=== PATIENT | male | born 1995 | race African-American/Black ===

== ENCOUNTER 2025-04-18 01:28 | Emergency (ER) | payer OTHER, SELFPAY ==
[2025-04-18 01:34] VITALS: BP 133/82; PULSE 82; RESP 18; TEMP 36.6; O2SAT 82; BMI 23.7
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
--- OUTSIDE RECORDS SUMMARY | 2025-04-18 04:17 | XMS_ITS | Encounter Summary ---
Author Organization [facility] iance Address [address] [place] [address] Care Team Providers Care Field Hockey Coach Name Role Phone Dayanna Vallejo MD Primary Care Provider [phone] Reason for Visit * Reason Onset Date Comments Imm/Inj 10/01/2024 heplisav Encounter Details Date Type Department Care Team ([facility] st Contact Info) Description 10/01/[address], [address] [place] [address] Dayanna Vallejo MD [address] [place] [id number] Imm/Inj (heplisav) Social History Tobacco Use Types Packs/Day Years Used Date Smoking Tobacco: Never Smokeless Tobacco: Never Alcohol Use Standard Drinks/Week Comments Yes 0 (1 standard drink = 0.6 oz pure alcohol) once a month, every other month Sex and Gender Information Value Date Recorded Sex Assigned at Not on file Legal Sex Male 10:41 PM EDT Gender Identity Male 09/01/2023 2:57 PM EST Sexual Orientation Straight 09/01/2023 2: 57 PM EST documented as of this encounter Miscellaneous Notes * Telephone Encounter - Stephanie Quinteros - 10/01/2024 4:33 PM EDT NURSE called [facility]ill Department to complete a benefit analysis for the HEPLISAV-B Vaccine. The vaccine is covered under the patient???s medical medical coverage. Please choose Private Thank you documented in this encounter Plan of Treatment Not on file documented as of this encounter Visit Diagnoses Not on filedocumented in this encounter Care Teams Field Hockey Coach Relationship Specialty Start Date End Date Dayanna Vallejo MD [address] [place] [address], [place] [address] PCP - General 06/08/24 documented as of this encounter
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
--- OUTSIDE RECORDS SUMMARY | 2025-04-18 04:17 | XMS_ITS | Encounter Summary ---
Author Organization [facility] iahie Address [address] [place] [address] Care Team Providers Care Practice Director Name Role Phone Dayanna Vallejo MD Primary Care Provider [phone] Reason for Visit * Reason Onset Date Comments Imm/Inj 10/29/2024 heplisav Encounter Details Date Type Department Care Team ([facility] st Contact Info) Description 10/29/[address], [address] [place] [address] Dayanna Vallejo MD [address] [place] [id number] Imm/Inj (heplisav) Social History Tobacco Use Types [...] encounter Miscellaneous Notes * Telephone Encounter - Dory Brunson - 10/29/2024 9:14 AM EDT Nurse from [facility] called the Central Refill Department to complete a benefit analysis for the heplisav Vaccine. The vaccine is covered under the patient???s [facility] medical coverage. Please choose Private documented in this encounter Plan of Treatment Not on file documented as of this encounter Visit Diagnoses Not on filedocumented in this encounter Care Teams Practice Director Relationship Specialty Start Date End Date Dayanna Vallejo MD [address] [place] [address], [place] [address] PCP - General 06/08/24 documented as of this encounter
--- OUTSIDE RECORDS SUMMARY | 2025-04-18 04:17 | XMS_ITS | Encounter Summary ---
Author Organization [facility] iacte Address [address] [place] [address] Care Team Providers Care Public Address Servicer Name Role Phone Organization, Other Palliative Care Primary Care Provider Unavailable Valentin Walter MD Primary Care Provider [phone] Talita Montalvo MD Primary Care Provider [phone] Shiva Grover DO Primary Care Provider + Dayanna Vallejo MD Primary Care Provider [phone] Reason for Visit * Reason Onset Date Comments Imm/Inj 02/09/2019 tdap Encounter Details Date Type Department Care Team (Late st Contact Info) Description 02/09/[address], [address] [place] [address] Valentin Walter MD [address] [place] [address] Imm/Inj (tdap) Social History Tobacco Use Types Packs/Day Years Used Date Smoking Tobacco: Never Alcohol Use Standard Drinks/Week Comments No 0 (1 standard drink = 0.6 oz pur e alcohol) Sex and Gender Information Value Date Recorded Sex Assigned at Not on file Legal Sex Male 10:41 PM EDT Gender Identity Male 09/01/2023 2:57 PM EST Sexual Orientation Straight 09/01/2023 2: 57 PM EST documented as of this encounter Miscellaneous Notes * Telephone Encounter - Juan A Tijerina Zunilda - 02/09/2019 11:00 AM EDT ----- Message from Daisy Navarro LPN sent at 02/08/2019 9:22 AM EDT ----- Regarding: benefit review Vaccine Benefit Analysis: Needed for Tdap vaccine(s). Is patient currently waiting in clinic? No - Appt Date: 02/10 Route to the nursing pool? No documented in this encounter Plan of Treatment Not on file documented as of this encounter Visit Diagnoses Not on filedocumented in this encounter Care Teams Public Address Servicer Relationship Specialty Start Date End Date Organization, Other Palliative Care PCP - General Palliative Care 02/08/19 02/09/19 Valentin Walter MD [address] [place] [address] PCP - General Family Medicine 02/10/19 01/30/21 Talita Montalvo MD [address] [place] [address] PCP - General 01/31/21 03/25/22 Shiva Grover DO [address] [place] [address] PCP - General Family Medicine 03/26/22 06/07/24 Dayanna Vallejo MD [address] [place] [address] PCP - General 06/08/24 documented as of this encounter
--- OUTSIDE RECORDS SUMMARY | 2025-04-18 04:17 | XMS_ITS | Encounter Summary ---
Author Organization [facility] iadee Address [address] [place] [address] Care Team Providers Care Care Coordinator Name Role Phone Shiva Grover DO Primary Care Provider + Dayanna Vallejo MD Primary Care Provider [phone] Reason for Visit * Reason Onset Date Comments Cough 08/19/2023 Encounter Details Date Type Department Care Team (Late st Contact Info) Description 08/26/2023 Nurse Triage [address], [address] [place] [address] Shiva Grover DO [address] [place] [address] Cough Social History Tobacco Use Types Packs/Day Years [...] encounter Miscellaneous Notes * Telephone Encounter - Vale Morgan RN - 08/27/2023 10:26 AM EST Spoke w/pt and confirmed identity with 2 patient identifiers. Pt speaking in full sentences, but can hear audible coughing Cough x1 week,throat soreness, extreme discomfort with coughs and without coughs, runny nose Chest discomfort is 6/10 and with coughs pain is 10/10 No fever + yellow phlegm, no blood General SOB, history of asthma and says he uses inhaler as needed, and it helps slightly. COVID tested neg 08/19/23 Coughing gets so bad he starts to gag and throws up the phlegm Pt went to [facility] 08/19/23 and they did not prescribe any treatment for pt They listened to lungs but did not hear fluid in lungs Pt says it has gotten worse since then Pt told to f/u for worsening or new symptoms. Pt told he has URI. 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 Pt shares a car with child's mother Pt currently resides in [place] and has had difficulty finding a provider in [place]. Pt has little trust in health care systems where he is. Informed pt that due to his history and that he is feeling worse would be best to have him re-evaluated preferably somewhere [facility] chest x-ray. Concerned for PNA or bronchitis. Pt says he will tough it out and is requesting nurse send msg to PCP. Pt is at work, nurse ended call and will forward to PCP. Preferred pharmacy: [id number] - [address] [[id number]] Advised per nursing triage protocol. Verbalized understanding and agreement with instructions and disposition. Recommended disposition for patient:Disposition: Advised to go to Urgent Care for Evaluation If patient referred to UC/ED advised that they may require further follow up and testing after the visit with their primary care office. Instructed patient to call back for any new, worsening, or worrisome symptoms or concerns any time day or night. Reason for Disposition MILD difficulty breathing (e.g., minimal/no SOB at rest, SOB with walking, pulse <100) and stillpresent when not coughing Protocols used: Cough-A-OH documented in this encounter Plan of Treatment Not on file documented as of this encounter Visit Diagnoses Not on filedocumented in this encounter Care Teams Care Coordinator Relationship Specialty Start Date End Date Shiva Grover DO [address] [place] [id number] PCP - General Family Medicine 03/26/22 06/07/24 Dayanna Vallejo MD [address] [place] [phone] PCP - General 06/08/24 documented as of this encounter
--- OUTSIDE RECORDS SUMMARY | 2025-04-18 04:17 | XMS_ITS | Encounter Summary ---
Author Organization [facility] [facility] iance Address [address] [place] [address] Care Team Providers Care Cam Milling Machine Operator Name Role Phone Dayanna Vallejo MD Primary Care Provider [phone] Encounter Details Date Type Department Care Team ([facility] st Contact Info) Description 02/14/2025 Results Follow-Up [facility] [address] [place] [address], [address] [place] [address] Dayanna Vallejo MD [address] [place] [phone] Social History Tobacco Use Types Packs/Day Years [...] PM EST documented as of this encounter Plan of Treatment Not on file documented as of this encounter Visit Diagnoses Not on filedocumented in this encounter Care Teams Cam Milling Machine Operator Relationship Specialty Start Date End Date Dayanna Vallejo MD [address] [place] [id number] PCP - General 06/08/24 documented as of this encounter
--- OUTSIDE RECORDS SUMMARY | 2025-04-18 04:17 | XMS_ITS ---
Author Name [facility] Organization Unknown History of Medication Use Medication Directions Dispensed Refills Start Date End Date Stat us acetaminophen (TYLENOL) 500 mg tablet Take 2 tablets (1,000 mg total) by mouth every 6 (six) hours if needed for mild pain for up to 10 days. 04/08/2025 active ibuprofen (ADVIL,MOTRIN) 600 mg tablet Take 1 tablet (600 mg total) by mouth every 6 (six) hours if needed for mild pain for up to 7 days. 04/08/2025 active Allergies Allergen Reaction Severity Comment Documented Date Source Statu s BEE POLLEN RUNNY NOSE Seasonal allergies 02/10/2019 CT_T HSFRAN active CAT DANDER RASH Sneezing, exacerbates asthma 02/10/2019 CT_THSFRAN active Encounters Encounter Type Encounter Reason Primary Diagnosis Location Date Emergency [place] [facility] [place] Name Specialty Phone Email Start Date End Da te [facility] PHYSICIAN Primary Care 2025 [facility] NO PHYSICIAN Primary Care 2025
--- OUTSIDE RECORDS SUMMARY | 2025-04-18 04:17 | XMS_ITS | Encounter Summary ---
Author Organization [facility] iasde Address [address] [place] [address] Care Team Providers Care Coach Operator Name Role Phone Shiva Grover DO Primary Care Provider + Dayanna Vallejo MD Primary Care Provider [phone] Reason for Visit * Reason Onset Date Comments Other 09/10/2023 Encounter Details Date Type Department Care Team (Late st Contact Info) Description 09/10/[address], [address] [place] [address] Shiva Grover DO [address] [place] [id number] Other Social History Tobacco Use Types Packs/Day Years [...] encounter Miscellaneous Notes * Telephone Encounter - RUFUS BRISCOE - 09/10/2023 11:50 AM EST .Neli Feldman, [id number], male Date of : 1995, 28 year old Telephone Information: Work Phone Not on file. Patient's PCP: Shiva Grover DO Patient's language of care: Greenlandic Caller does not need an surveillance agent. Pt/Parent walks in today to drop off form/letter for: RMV Application Number of forms dropped off: 1 pages Did patient fill in information required of them on form, and sign where applicable? Yes Signed consent form on file or attached: Yes If not, have patient fill out ALFONSO release form. Date of Last visit: 09/08/23 Does patient need to be seen before provider can complete form? No If yes, make appointment with patient with in 2-10 business days, For provider to complete form with patient. Disability forms may require that patient has been seen within 30 days of completing form. Appt scheduled for: 09/08/23 Date patient needs completed by: anytime Patient's contact telephone number: [phone] Will pick-up at the manager front office when notified form is ready: No Mail to: nono(requires signed release if other than patient). Fax to: no (requires signed release if other than patient). Attn to: Judd Request to be scanned into [employer] and a phone call when Document is signed Will pick-up original at the manager front office after form has been faxed: Yes Pt/person dropping off form understands that forms are subject to the 7 - 10 day letter/form policy& letter/form will be complete as soon as possible by provider ; (verbal notification given to person dropping off form). Form/Letter placed in MD box for completion. (Located in Team office) RUFUS BRISCOE, 09/10/2023 documented in this encounter Plan of Treatment Not on file documented as of this encounter Visit Diagnoses Not on filedocumented in this encounter Care Teams Coach Operator Relationship Specialty Start Date End Date Shiva Grover DO [address] [place] [address] PCP - General Family Medicine 03/26/22 06/07/24 Dayanna Vallejo MD [address] [place] [address] PCP - General 06/08/24 documented as of this encounter
--- OUTSIDE RECORDS SUMMARY | 2025-04-18 04:17 | XMS_ITS | Encounter Summary ---
Author Organization [facility] iadee Address [address] [place] [address] Care Team Providers Care Business Services Director Name Role Phone Shiva Grover DO Primary Care Provider + Dayanna Vallejo MD Primary Care Provider [phone] Reason for Visit * Reason Onset Date Comments Prior Authorization 02/24/2023 Gabapentin 3 00 mg Encounter Details Date Type Department Care Team (Latest Contact Info) Description 02/24/2023 Prior Authorization [address], [address] [address] Shiva Grover DO [address] [place] [id number] Prior Authorization (Gabapentin 300 mg /) Social History Tobacco Use Types Packs/Day Years [...] as of this encounter Miscellaneous Notes * Prior Authorization - Dory Brunson - 02/27/2023 4:36 PM EDT Status: Prior Authorization Status: Denied Denied: The prior authorization has been denied. The denial notice has been scanned into [employer]. Denial Reason(s): Prior Authorization Denied No Go or Cancelled: No Go or Canceled Prescription: Other Other - Comment: You have one of the following; A) brain condition that may causes seizures (epilepsy or a seizure disorder) B) pain and tenderness all over your body (fibromyalgia) C) nerve pain (due to diabetic neuropathy or spinal cord injury D) nerve pain due to shingles (postherpetic neuragmia) E) severe face pain caused by pressure on a nerve (trigeminal neuralgia F) condition that causes strange sensations in your legs G) excessive feeling of worry H) panic disorder * Prior Authorization - Linda Marquez - 02/24/2023 6:35 PM EDT Patient Insurance: [employer] BIN: [id number] PCN: MHP Group: [employer] Prior Authorization for: GABAPENTIN 800MG Prior authorization was done verbally over the phone. 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 Waiting for the insurance company to provide an approval/denial notice. This may take between 24 - 72 hours. * Prior Authorization - Jerome Gamble - 02/24/2023 3:27 PM EDT Patient Insurance: [employer] BIN: [id number] PCN: MHP Group: [employer] Prior Authorization for: GABAPENTIN 800MG documented in this encounter Plan of Treatment Not on file documented as of this encounter Visit Diagnoses Not on filedocumented in this encounter Care Teams Business Services Director Relationship Specialty Start Date End Date Shiva Grover DO [address] [place] [address] PCP - General Family Medicine 03/26/22 06/07/24 Dayanna Vallejo MD [address] [place] [address] PCP - General 06/08/24 documented as of this encounter
--- OUTSIDE RECORDS SUMMARY | 2025-04-18 04:17 | XMS_ITS | Encounter Summary ---
Author Organization [facility] iance Address [address] [place] [address] Care Team Providers Care Network Systems Engineer Name Role Phone Dayanna Vallejo MD Primary Care Provider [phone] Reason for Visit * Reason Onset Date Comments Imm/Inj 10/01/2024 tdap Encounter Details Date Type Department Care Team ([facility] st Contact Info) Description 10/01/[address], [address] [place] [address] Dayanna Vallejo MD [address] [place] [phone] Imm/Inj (tdap) Social History Tobacco Use Types [...] encounter Miscellaneous Notes * Telephone Encounter - Elizabeth Waller - 10/01/2024 4:27 PM EDT Central Refill Department to complete a benefit analysis for the TDAP Vaccine. The vaccine is covered under the patient???s medical coverage. Please choose Private documented in this encounter Plan of Treatment Not on file documented as of this encounter Visit Diagnoses Not on filedocumented in this encounter Care Teams Network Systems Engineer Relationship Specialty Start Date End Date Dayanna Vallejo MD [address] [place] [address] PCP - General 06/08/24 documented as of this encounter
--- OUTSIDE RECORDS SUMMARY | 2025-04-18 04:17 | XMS_ITS | Clinical Summary ---
Author Organization [facility] iance Address [address] [place] [address] Care Team Providers Care Chronometer Adjuster Name Role Phone Dayanna Vallejo MD Primary Care Provider Allergies Active Allergy Reactions Criticality Noted Date Comments Cat Dander Rash Low 02/10/2019 Sneezing, exacerbates asthma Pollen Extract Runny Nose 02/10/2019 Seasonal allergies Medications cloNIDine (CATAPRES) 0.1 MG tabletIndications: Anxiety state,PTSD (post-traumatic stress disorder),Insomnia , unspecified type Take 1 tablet by mouth nightly 30 tablet 4 Active gabapentin (NEURONTIN) 800 MG tabletIndications: Other mononeuropathy Take 1 tablet by mouth 3 (three) times daily 90 tablet 4 Active albuterol HFA 108 (90 Base) MCG/ACT inhalerIndications :Mild intermittent asthma without complication Inhale 2 puffs into the lungs every 6 (six) hours as needed for Wheezing or Shortness of breath 1 each 5 026 Active ALPRAZolam (XANAX) 1 MG tablet Take 1 mg by mouth 3 (three) times daily 5 Active amphetamine-dextro amphetamine (ADDERALL) 20 MG tablet Take 30 mg by mouth every morning 5 Active amphetamine-dextro amphetamine (ADDERALL) 10 MG tablet Take 10 mg by mouth daily Active lidocaine (LIDODERM) 5 % patch Place 1 patch onto the skin in the morning for 7 days. . Patch(es) may remain in place for up to 12 hours in any 24-hour period. 7 patch 5 025 Active Problems Problem Noted Date Diagnosed Date Herpes simplex virus (HSV) antibody positive 07/2024 Overview (11/04/2024): 11/04/24 HSV IgG tested at urgent care and positive. Not sure if he had an outbreak after last appointment but now completely gone Reviewed disease course/periods of infectivity Unclear if true outbreak given unable to assess on exam - plan to come in or send photos if recurs No indication for tx at this time Nasal congestion 10/04/2024 Overview (11/04/2024): Suspect this is allergies and PND Trial of flonase and cetirizine, if no improvement could consider treatment for chronic sinusitis 11/04/24 Only used flonase for ~2 weeks, didn't try zyrtec. Encouraged continued use for longer trial period + nasal rinses + humidification If no improvement after this, will refer to ENT Chronic cough 10/04/2024 PTSD (post-traumatic stress disorder) 09/08/2023 Migraine without status migrainosus, not intract able 09/08/2023 Low HDL (under 40) 03/03/2023 Overview (03/03/2023): Plan to increase fatty foods that grow and consider retesting in 3 years. If continues to be terrible recommend a CT calcium score or similar to see if he has had any atherosclerotic buildup by his 30s Other acne 02/04/2023 Anxiety state 02/04/2023 Keloid 10/04/2022 History of anabolic steroid use 07/02/2022 History of chlamydia infection 02/15/2019 Myopia of both eyes with astigmatism 02/15/2019 Contact lens overwear of both eyes 02/15/2019 History of incarceration 02/10/2019 Allergic rhinitis 03/11/2003 Overview (02/10/2019): Allergic rhinitis Asthma 03/11/2003 Overview (02/10/2019): Asthma; allergy induced Resolved Problems Problem Noted Date Diagnosed Date Resolved Date Marijuana smoker, continuous 02/10/2019 02/27/2023 Encounters Date Type Department Care Team Description 04/09/2025 2:23 AM EDT - 04/09/2025 7:08 AM EDT [facility] [address] [place] [address] Dung Michaud MD Medication management Discharge Disposition: Home 04/09/2025 Travel 03/11/2025 6:24 PM EDT - 03/11/2025 8:03 PM EDT Emergency [facility] [address] [place] [address] Lilia Castro MD Medication refill; Anxiety Discharge Disposition: Home 03/11/2025 Travel 02/14/2025 Results Follow-Up [address], [address] [place] [address] Dayanna Vallejo MD 02/10/2025 9:30 AM EDT Televisit [address], [address] [address] Daaynna Vallejo MD Frequent stools (Primary Dx); Routine screening for STI (sexually transmitted infection) 02/10/2025 Travel from Last 3 Months Immunizations Immunization Administration Dates Next Due HPV, Quadrivalent 06/21/2014,02/10/2014,10/20/19 14 Hep B Adult 2 Dose (HEPLISAV -B) 18 and Older 10/29/2024,10/01/2024 Influenza Trivalent Preserva tive Free 0.5 mL 6m+ 04/22/2024 Influenza Virus Quad Presv F ree Vacc 6 Mo and Older, IM 04/25/2023 Influenza Virus Vac, Quad (CCIIV4)IM 07/29/2022 Influenza, Unspecified Formulation 08/17/2009,,05/12/2007 Meningococcal Vaccine 06/15/2008 Novel [id number], All Formulations 2009 Tdap 10/01/2024 Family History Medical History Relation Comments No Known Problems Father Diabetes Maternal Uncle No Known Problems Mother Relation Status Comments Father Alive Maternal Grandfather Alive Maternal Grandmother Alive Maternal Uncle Mother Alive Paternal Grandfather Social History Tobacco Use Types Packs/Day Years Used Date Smoking Tobacco: Never Smokeless Tobacco: Never Tobacco Cessation:Counseling Given: Not Answered Alcohol Use Standard Drinks/Week Comments Yes 0 (1 standard drink = 0.6 oz pure alcohol) once a month, every other month Sex and Gender Information Value Date Recorded Sex Assigned at Not on file Legal Sex Male 10:41 PM EDT Gender Identity Male 09/01/2023 2:57 PM EST Sexual Orientation Straight 09/01/2023 2: 57 PM EST Last Filed Vital Signs Vital Sign Reading Time Taken Comments Blood Pressure 114/69 04/09/2025 2:38 AM EDT Pulse 77 04/09/2025 3:00 AM EDT Temperature 36.5 C (97.7 F) 04/09/2025 2:38 AM EDT Respiratory Rate 16 04/09/2025 2:38 AM EDT Oxygen Saturation 97% 04/09/2025 3:00 AM EDT Inhaled Oxygen Concentration - - Weight 77.1 kg (170 lb) 04/09/2025 2:38 AM EDT Height 180.3 cm (5' 11 ) 02/27/2023 3:11 PM EDT Body Mass Index 23.71 02/27/2023 3:11 PM EDT Plan of Treatment Health Maintenance Due Date Last Done Comments Contraceptive Care Screening 1995 PNEUMOCOCCAL VACCINE SERIES (< 65) (1 of 2 - PCV) 2012 PHYSICAL EXAM 2015 COVID-19 Vaccine (1 - season) 2025 INFLUENZA VACCINE (#1) 2025 , 04/25/2023, 07/29/2022, Additional history exists AWQ Questionnaire 10/29/2025 10/29/2024, 10/01/2024 LIPID SCREENING 02/28/2028 02/27/2023 HEALTH CARE PROXY 10/21/2029 10/21/2024, 02/10/2019 TETANUS VACCINE (2 - Td or Tdap) 10/01/2034 10/01/2024 ZOSTER VACCINE (1 of 2) 2043 HEPATITIS B VACCINE SERIES Completed 10/29/2024, HEP C SCREEN Completed 02/10/2025, 02/27/2023 HIV SCREENING Completed 02/10/2025, 05/2 10/2023, 02/27/2023, Additional history exists MENINGOCOCCAL B VACCINE SERIES Aged Out No longer eligible based on patient's age to complete this topic Procedures Procedure Name Priority Date/Time Associated Diagnosis Comments CELIAC PANEL Routine 02/10/2025 10:44 AM EDT Frequent stools HC ESR - ERYTHROCYTE SED RATE Routine 02/10/2025 10:44 AM EDT Frequent stools HC TSH (THYROID STIMULATE HOROME) Routine 02/10/2025 10:44 AM EDT Frequent stools HIV ANTIGEN ANTIBODY 5TH GEN Routine 02/10/2025 10:44 AM EDT Routine screening for STI (sexually transmitted infection) HC TREPONEMA PALLIDUM Routine 02/10/2025 10:44 AM EDT Routine screening for STI (sexually transmitted infection) HEPATITIS C PCR QUAL TO QUANT Routine 02/10/2025 10:44 AM EDT Routine screening for STI (sexually transmitted infection) HC LIPID PANEL Routine 02/27/2023 3:55 PM EDT Screening, lipid from Last 3 Months or Most Recently Relevant to Health Maintenance Results * HIV ANTIGEN ANTIBODY 5TH GEN (02/10/2025 10:44 AM EDT) HIVAGAB QUALITATIVE NON-REAC TIVE NONREACTIVE [facility] Comment: This sample is negative for HIV-1 Antibody (Groups M and O), HIV-2 Antibody, and HIV-1 p24 Antigen. No further testing is required. The differentiation tests will be reported as Test Not Performed (TNP). HIV-1 ANTIBODY 5TH GEN TNP 0.00 - 0.99 INDEX [facility] HIV-2 ANTIBODY 5TH GEN TNP 0.00 - 0.99 INDEX [facility] HIV-1 ANTIGEN 5TH GEN TNP 0.00 - 0.99 INDEX [facility] HIV-1 ANTIBODY GEENIUS TNP [facility] HIV-2 ANTIBODY GEENIUS TNP [facility] HIV RESULT INTERPRETATION TNP [facility] 02/10/2025 10:4 4 AM EDT 02/10/2025 4:40 PM EDT Narrative [facility] - 02/11/2025 1:26 PM EDT PRIOR TO ORDERING, was verbal consent obtained? (Verbal consent by the patient or designee is REQUIR ED to order this test.)->YES Dayanna Vallejo MD LABORATORY Final Result Performing Organization Address City/[facility]/ZIP Co de Phone Number [facility] [address] [place] [address], [place] * CELIAC PANEL (02/10/2025 10:44 AM EDT) TISSUE TRANSGLUTAMINASE IgG TNP 0 - 14.9 U/mL [facility] DEAMINATED GLIADIN PEPTIDE IgG TNP 0 - 14.9 U/mL [facility] TISSUE TRANSGLUTAMINASE IgA < 0.5 0 - 14.9 U/mL [facility] Comment: This test includes an internal IgA verification test, using a cutoff of 0.7 g/L to determine IgA deficiency. If the IgA is deficient, the TTG IgG and DGP IgG tests will be automatically resulted by the laboratory. This testing sequence is in accordance with the Celiac Disease Testing Algorithm recommended by the [employer] and available on [employer]. 02/10/2025 10:4 4 AM EDT 02/10/2025 4:40 PM EDT Narrative [facility] - 02/11/2025 1:26 PM EDT PRIOR TO ORDERING, was verbal consent obtained? (Verbal consent by the patient or designee is REQUIR ED to order this test.)->YES us Dayanna Vallejo MD LABORATORY Final Result Performing Organization Address City/[facility]/ZIP Co de Phone Number [facility] [address] [place] [address], [place] * HEPATITIS C PCR QUAL TO QUANT (02/10/2025 10:44 AM EDT) HEPATITIS C ANTIBODY NON-REACT RAFA NONREACTIVE [facility] 02/10/2025 10:4 4 AM EDT 02/10/2025 4:39 PM EDT us Dayanna Vallejo MD LABORATORY Final Result Performing Organization Address [facility]/[place] [address], [place] * RBC SEDIMENTATION RATE (02/10/2025 10:44 AM EDT) RBC SEDIMENTATION RATE 1 0 - 15 MM/HR [facility] 02/10/2025 10:4 4 AM EDT 02/10/2025 4:40 PM EDT Dayanna Vallejo MD LABORATORY Final Result Performing Organization Address [facility] [place] [address], * TREPONEMA PALLIDUM AB IGG (02/10/2025 10:44 AM EDT) TREPONEMA PALLIDUM AB IGG NON-REACT RAFA NONREACTIVE [facility] Comment: No serologic evidence of syphilis. No follow-up necessary unless clinically indicated. 02/10/2025 10:4 4 AM EDT 02/10/2025 4:40 PM EDT Narrative [facility] - 02/11/2025 1:26 PM EDT PRIOR TO ORDERING, was verbal consent obtained? (Verbal consent by the patient or designee is REQUIR ED to order this test.)->YES us Dayanna Vallejo MD LABORATORY Final Result Performing Organization Address [facility] [place] [address], [place] * THYROID SCREEN TSH REFLEX FT4 (02/10/2025 10:44 AM EDT) THYROID SCREEN TSH REFLEX FT4 0.846 0.270 - 4.200 uIU/mL [facility] 02/10/2025 10:4 4 AM EDT 02/10/2025 4:39 PM EDT us Dayanna Vallejo MD LABORATORY Final Result Performing Organization Address City/[facility]/ZIP Co de Phone Number [facility] [address] [place] [address], [place] * (ABNORMAL) LIPID PANEL (02/27/2023 3:55 PM EDT) Cholesterol 198 0 - 239 mg/dL [facility] TRIGLYCERIDES 193(H) 0 - 150 mg/dL [facility] HIGH DENSITY LIPOPROTEIN 16(L) 40 - 60 mg/dL [facility] LOW DENSITY LIPOPROTEIN DIRECT 143 0 - 189 mg/dL [facility] 02/27/2023 3:55 PM EDT 02/27/2023 8:04 PM EDT us Shiva Grover DO LABORATORY Final Re sult [facility] [address] [place] [address], [place] from Last 3 Months or Most Recently Relevant to Health Maintenance Insurance OTHER [facility] [employer] [facility] Address: [address] [phone] Advance Directives Documents on File Type Date Recorded Patient Exhaust Equipment Operator Expl anation HC PROXY 10/28/2024 9:37 AM Healthcare Proxy HC PROXY 02/15/2019 9:43 AM advanced d irective Care Teams Chronometer Adjuster Relationship Specialty Start Date End Date Dayanna Vallejo MD [address] [place] [address] PCP - General 06/08/24
[2025-04-18 04:51] VITALS: PULSE 69; RESP 18; O2SAT 96
[2025-04-18] MEDS: Dextroamphetamine/Amphetamine XR 10 MG CAP.ER.24H 30 MG PO (10:11)
[2025-04-18 10:22] VITALS: BP 00/00; PULSE 0; RESP 0; TEMP -17.7; TEMP 0; O2SAT 0
== END 2025-04-18 10:37 | disposition home or self-care (01) ==
PROVIDERS: Emergency Provider Emergency Medicine; PCP Internal Medicine
DX: M54.6 Pain in thoracic spine (principal); G89.29 Other chronic pain
CPT/HCPCS: 99283